=== PATIENT | female | born 1985 | race Two or more races ===

== ENCOUNTER 2019-01-27 20:48 | Emergency (ER) ==
--- NOTE | 2019-01-27 22:16 | RADIOLOGY REPORT (SQ) ---
EXAM DESCRIPTION: XR KNEE 4 OR MORE VIEWS COMPLETED DATE/ TME: 01/27/2019 21:15 CLINICAL HISTORY: 33 years, Female, pain COMPARISON: None. NUMBER OF VIEWS: 4 TECHNIQUE: 4 view right knee LIMITATIONS: None. FINDINGS: Osteopenia. Negative for fracture or dislocation. Mild tricompartmental degenerative change. Soft tissues are unremarkable IMPRESSION: Osteopenia with mild degenerative change copyright 2010 [employer]- All Rights Reserved
== END 2019-01-28 00:09 | disposition left against medical advice (07) ==
LOC: ER 20:48
DX: Z53.21 Procedure and treatment not carried out due to patient leaving prior to being seen by health care provider (principal)

== ENCOUNTER 2019-02-19 19:56 | Emergency (ER) | payer SELFPAY ==
[2019-02-20] MEDS ORDERED: ACETAMINOPHEN 325 MG TABLET PO ONE (00:05)
[2019-02-20] MEDS ORDERED: CLINDAMYCIN HCL 150 MG CAPSULE PO ONE (02:00)
--- NOTE | 2019-02-20 02:02 | ER Document Report ---
ED General - General Chief Complaint: Toothache Stated Complaint: TOOTHACHE Time Seen by Provider: 02/20/19 01:35 Notes: Patient is a 33-year-old female with a past medical history of obesity who presents with complaints of right mandibular pain and right ear pain. States that her symptoms started yesterday with right ear pain and now are located exclusively in the right mandible region. Describes the pain as being a severe, throbbing, constant pain to the affected area. Eating or moving the jaw worsens the pain. Nothing improves the pain. States that she has a history of very poor dentition and suspects that this may be causing her pain. Has not seen a dentist or primary care physician regarding today's concerns. Denies fever to me although in triage apparently reported a fever at home. Has also had some nasal congestion and nonproductive cough. Denies history of similar symptoms in the past. TRAVEL OUTSIDE OF THE [place] IN LAST 30 DAYS: No - Related Data Allergies/Adverse Reactions: No Known Allergies Allergy (Verified 02/19/19 20:02) Past Medical History - General Information source: Patient - Social History Smoking Status: Current Every Day Smoker Chew tobacco use (# tins/day): No Frequency of alcohol use: None Drug Abuse: None Lives with: Family Family History: Reviewed & Not Pertinent Patient has suicidal ideation: No Patient has homicidal ideation: No Renal/ Medical History: Denies: Hx Peritoneal Dialysis Past Surgical History: Reports: Hx Section - 2 Review of Systems - Review of Systems Notes: Constitutional: Negative for fever. HENT: Positive for right jaw pain, diffusely poor dentition Eyes: Negative for visual changes. Cardiovascular: Negative for chest pain. Respiratory: Negative for shortness of breath. Gastrointestinal: Negative for abdominal pain, vomiting or diarrhea. Genitourinary: Negative for dysuria. Musculoskeletal: Negative for back pain. Skin: Negative for rash. Neurological: Negative for headaches, weakness or numbness. 10 point ROS negative except as marked above and in HPI. Physical Exam - Vital signs Vitals: Temp Pulse Resp BP Pulse Ox 98.6 F 62 20 125/80 98 02/19/19 21:03 02/19/19 21:03 02/19/19 21:03 02/19/19 21:03 02/19/19 21:03 Interpretation: Normal Notes: PHYSICAL EXAMINATION: GENERAL: Well-appearing, well-nourished and in no acute distress. HEAD: Atraumatic, normocephalic. EYES: Pupils equal round and reactive to light, extraocular movements intact, sclera anicteric, conjunctiva are normal. ENT: nares patent, oropharynx clear without exudates. Moist mucous membranes. Diffusely poor dentition. NECK: Normal range of motion, supple without lymphadenopathy LUNGS: Breath sounds clear to auscultation bilaterally and equal. No wheezes rales or rhonchi. HEART: Regular rate and rhythm without murmurs ABDOMEN: Soft, nontender, normoactive bowel sounds. No guarding, no rebound. No masses appreciated. EXTREMITIES: Normal range of motion, no pitting or edema. No cyanosis. NEUROLOGICAL: No focal neurological deficits. Moves all extremities spontaneously and on command. PSYCH: Normal mood, normal affect. SKIN: Warm, Dry, normal turgor, no rashes or lesions noted. Course - Re-evaluation Re-evalutation: 02/20/19 02:02 Presentation is most consistent with likely an infected tooth. Airway is patent. Vitals within normal limits. Patient is able swallow without any difficulty. There is no significant facial swelling. No evidence of Mike angina, apical abscess, or airway obstruction. Patient will be started on antibiotics. I've instructed to follow-up with dentistry as earliest ability for definitive management. At this time will discharge with return precautions and follow-up recommendations. Verbal discharge instructions given a the bedside and opportunity for questions given. Medication warnings reviewed. Patient is in agreement with this plan and has verbalized understanding of return precautions and the need for primary care follow-up in the next 24-72 hours. - Vital Signs Vital signs: Temp Pulse Resp BP Pulse Ox 98.1 F 67 20 128/63 H 98 02/20/19 02:22 02/20/19 02:22 02/19/19 21:03 02/20/19 02:22 02/20/19 02:22 Discharge - Discharge Clinical Impression: Dental caries, Facial pain Condition: Good Disposition: HOME, SELF-CARE Additional Instructions: You have been seen for dental pain. It is very important that you follow-up with a dentist for definitive care. Please return if you develop fever greater than 101, swelling in your face, vomiting, difficulty breathing or swallowing, or any other symptoms that are concerning to you. For pain you should take ibuprofen 600 mg every 6 hours as needed. Prescriptions: Clindamycin HCl 300 mg PO TID #30 capsule
[2019-02-20 02:27] VITALS: BP 128/63
== END 2019-02-20 02:35 | disposition home or self-care (01) ==
LOC: ER 19:56
DX: K02.9 Dental caries, unspecified (principal); R51 Headache; K08.89 Other specified disorders of teeth and supporting structures; H92.01 Otalgia, right ear; R09.81 Nasal congestion; R05 Cough; R68.84 Jaw pain; F17.200 Nicotine dependence, unspecified, uncomplicated
CPT/HCPCS: 87070; 87880; 99283